=== PATIENT | male | born 1985 | race Caucasian/White ===

== ENCOUNTER → 2017-08-26 | Outpatient (CLI) | payer OTHER ==
[~2017-08-26] MED LIST: ALBU90OI INH; AZIT500 PO; CEPH500 PO; CODGUAEL PO; Cyclobenzaprine5 MG PO; HYDACE5 PO; IBUP400 PO; KETO10 PO; NAPR500 PO; PRED20 PO; PROM25 PO; RXOXYACE PO; TRAM50 PO; [UNRECOGNIZED DRUG - REMARK]
== END | disposition home or self-care (01) ==
LOC: LAB 09:11
DX: S20.361A Insect bite (nonvenomous) of right front wall of thorax, initial encounter (principal)
CPT/HCPCS: 87168

== ENCOUNTER → 2021-09-06 | Outpatient (CLI) | payer BC ==
[~2021-09-06] MED LIST changes: +ADVANCED ESTER C PO; +MULVITA PO; +VITAMIN D310 MC4 PO
== END ==
LOC: LAB SHORT 13:00 → LAB 13:00
DX: L08.9 Local infection of the skin and subcutaneous tissue, unspecified (principal)
CPT/HCPCS: 87070; 87077; 87147; 87205

== ENCOUNTER 2021-10-08 07:41 | Day surgery (SDC) | payer BC ==
[~2021-10-08] VITALS: Ht 190.5 cm; Wt 98.8 kg
--- NOTE | 2021-10-08 08:18 | NUR ---
PENICILIN REMOVED FROM ALLERGY LIST PER PATIENT REQUEST. PATIENT DENIES ALLERGY TO PENICILLIN.
--- NOTE | 2021-10-08 08:40 | NUR ---
Patient confirms NPO status and agrees with scheduled surgery. History, Chart, Medications and Allergies reviewed before start of procedure. Patient States Post-Procedure ride home has been arranged.
--- NOTE | 2021-10-08 10:32 | NUR ---
Discharge instructions reviewed with patient. Patient verbalizes understanding. Copy given to patient to take home. Dressing to procedure site clean, dry, intact with no visible drainage, swelling, erythema or bruising noted. Patient States Post-Procedure ride home has been arranged. Discharged via wheelchair to private car for ride home.
== END 2021-10-08 23:04 | disposition home or self-care (01) ==
LOC: ORSCMMR 07:41
PROVIDERS: Surgery
PROC: 0JB00ZZ Excision of Scalp Subcutaneous Tissue and Fascia, Open Approach (ICD-10-PCS; principal; 2021-10-08 09:00)
DX: D17.0 Benign lipomatous neoplasm of skin and subcutaneous tissue of head, face and neck (principal); E78.5 Hyperlipidemia, unspecified; Z87.891 Personal history of nicotine dependence
CPT/HCPCS: 88304; J2704; J3010